=== PATIENT | female | born 1985 | race Two or more races ===

== ENCOUNTER → 2024-12-10 | Outpatient (CLI) | payer MEDICAID ==
[2024-12-10 10:34] LABS: Basophils # (auto) 0 10 ^3/uL (0-0.2); Basophils % (auto) 0.4 % (0.0-2.0); Eosinophils # (auto) 0.1 10 ^3/uL (0-0.8); Eosinophils % (auto) 1.8 % (0.0-7.0); Hematocrit 39.6 % (36.0-46.0); Hemoglobin 13.6 g/dL (12.2-16.2); Lymphocytes # (auto) 1.7 10 ^3/uL (0.4-5.4); Lymphocytes % (auto) 26.4 % (10.0-50.0); Mean Corpuscular Hemoglobin 31.1 pg (28.0-32.0); Mean Corpuscular Hgb Conc. 34.3 g/dL (32.0-36.0); Mean Corpuscular Volume 90.6 fL (80.0-100.0); Monocytes # (auto) 0.3 10 ^3/uL (0-1.3); Monocytes % (auto) 5.3 % (0.0-12.0); Neutrophils # (auto) 4.2 10 ^3/uL (1.6-8.6); Neutrophils % (auto) 66.1 % (37.0-80.0); Nucleated Red Blood Cells % 0.1 %; Platelet Count (auto) 261 10^3/uL (140-450); Red Blood Cells 4.37 10^6/uL (4.0-5.20); Red Cell Distribution Width 13.6 % (11.8-14.3); White Blood Cell 6.4 10^3/uL (4.4-10.8)
[2024-12-10 10:37] LABS: Amphetamine Screen, Urine Neg (NEGATIVE); Barbiturate Scree,Urine Neg (NEGATIVE); Benzodiazephine Screen, Urine Neg (NEGATIVE); Cocaine Screen, Urine Neg (NEGATIVE)
[2024-12-10 10:38] LABS: Cannabinoid Screen, Urine Neg (NEGATIVE); Opiate Scree,Urine Neg (NEGATIVE); Phencyclidine Screen, Urine Neg (NEGATIVE)
[2024-12-12 01:06] LABS: Chlamydia Trachomatis, NAA Negative (Negative); Neisseria gonorrhoeae, NAA Negative (Negative)
[2024-12-13 00:07] LABS: QuantiFERON-TB Gold Plus Negative (Negative)
== END | disposition home or self-care (01) ==
LOC: LAB 09:50
PROVIDERS: ATTEND Obstetrics & Gynecology
DX: Z34.80 Encounter for supervision of other normal pregnancy, unspecified trimester (principal); Z72.51 High risk heterosexual behavior; Z3A.00 Weeks of gestation of pregnancy not specified
CPT/HCPCS: 36415; 80307; 83036; 84144; 84702; 85025; 86703; 86762; 86780; 86850; 86900; 86901; 87086; 87340

== ENCOUNTER 2025-03-18 10:30 | Observation (INO) | payer MEDICAID ==
--- NOTE | 2025-03-18 11:45 | DVH ---
OB ULTRASOUND <14 WEEKS: HISTORY: Lost mucus plug TECHNIQUE: Multiple real-time grayscale sonographic images of the pelvis with duplex Doppler color f low, spectral and M-mode analysis. TRANSDUCERS: Transabdominal COMPARISON: None Findings/ IMPRESSION: Cephalic presentation. Anterior placenta without previa or abruption at this time. heart rate is 144 beats per minute ALEXX deepest pocket is 6.6 cm. Cervix is closed and measures 3.7 cm.
[2025-03-18] MEDS ORDERED: PREN-96 PO (12:12)
--- NOTE | 2025-03-18 16:10 | DVHDS2 ---
Physician Discharge Progress N Final Diagnosis: brown vaginal discharge Operations or Procedures: Operations or Procedures S: 39yo IUP@21wks came to OB triage with c/o brown vaginal discharge this morning. Had sex within the last [address] Olivarez uncomplicated, hx of previous C/S and PTD at 32.1wks. +FM, denies UCs/LOF. O: VSS +FHTs via doppler TOCO: no UCs OB sono done A: 39yo IUP@21wks brown vaginal discharge P: D/C home SAB precautions reviewed. f/u with Dr. Olivarez in office as scheduled tmrw 03/19/25 Dr. Olivarez consulted, agrees with POC. Other Interventions Other Interventions [place] [address] Ph: [phone] DIAGNOSTIC IMAGING Diagnostic Imaging Report : [id number] Signed PATIENT: MADIHA MALONEACCT: [id number] UNIT: [id number] : 1985 LOC: [facility] ROOM / BED: TRIAGE2 / A AGE / SEX: 39 / F ADM STATUS: ADM IN SERVICE 1034 ORDERING PHYSICIAN: JANIA MCCARTY CNM PROCEDURE(s): OBLTD - OBSTERICAL LIMITED REASON: Lost mucus plug ORDER NUMBER(s): [id number], ACCESSION NUMBER(s): [id number] OB ULTRASOUND <14 WEEKS: HISTORY: Lost mucus plug TECHNIQUE: Multiple real-time grayscale sonographic images of the pelvis with duplex Doppler color flow, spectral and M-mode analysis. TRANSDUCERS: Transabdominal COMPARISON: None Findings/ IMPRESSION: Cephalic presentation. Anterior placenta without previa or abruption at this time. heart rate is 144 beats per minute ALEXX deepest pocket is 6.6 cm. Cervix is closed and measures 3.7 cm. ATED BY: MARCK WHITE MD DICTATED DATE/TIME: 03/18/25 1143 SIGNED BY: MARCK WHITE MD SIGNED DATE/TIME: 03/18/25 1143 CC: Condition on Discharge: Stable Disposition: Home Discharge Instructions: Diet: Regular Activity: No Restrictions, As Tolerated Medications: see med list Follow Up Care: Specialist: f/u with Dr. Olivarez in office as scheduled tmrw 03/19/25 Discharge Statement: "Patient was advised to return to the ER or call 911 if any headaches, dizziness, shortness of breath, chest pain, abdominal pain, bleeding, fevers, or worsening of medical condition. Patient was counseled about treatment plan, medications, possible side effects, patientverbalized understanding. All questions were answered to the best of my ability. This discharge took greater then 30 minutes in planning, reviewing documentat ion, counseling the patient, and discussing with other team members." Visit Coding OBGYN Date of Service: Mar 18, 2025 Billing Provider: JANIA MCCARTY CNM SUPERVISOR MAJOR APPLIANCE ASSEMBLY Common Visit Codes: 76064-DDAYGSA OBS CARE (HIGH) SUPERVISOR MAJOR APPLIANCE ASSEMBLY Procedure Codes: 69602-35- NON-STRESS TEST JANIA MCCARTY CNM Mar 18, 2025 16:10
== END 2025-03-18 12:24 | disposition home or self-care (01) ==
LOC: UNDOADMOB 10:30 → LDRP 10:30 → UNDODISOB 12:24
PROVIDERS: ADMIT Obstetrics & Gynecology; ATTEND Obstetrics & Gynecology
DX: O34.62 Maternal care for abnormality of vagina, second trimester (principal); O09.522 Supervision of elderly multigravida, second trimester; N89.8 Other specified noninflammatory disorders of vagina; Z3A.21 21 weeks gestation of pregnancy; Z98.890 Other specified postprocedural states; Z79.899 Other long term (current) drug therapy
CPT/HCPCS: 76815; 81002; 94760; G0378

== ENCOUNTER 2025-06-24 11:16 | Outpatient (CLI) | payer MEDICAID ==
[~2025-06-24 11:16] MED LIST: PREN-96 PO
[2025-06-24 11:54] LABS: Hematocrit 33.6 % (36.0-46.0); Hemoglobin 11.4 g/dL (12.2-16.2); Mean Corpuscular Hemoglobin 31.6 pg (28.0-32.0); Mean Corpuscular Volume 93.5 fL (80.0-100.0); Nucleated Red Blood Cells % 0.1 %
[2025-06-26 04:06] LABS: Chlamydia Trachomatis, NAA Negative (Negative); Neisseria gonorrhoeae, NAA Negative (Negative)
== END 2025-06-24 17:00 | disposition home or self-care (01) ==
LOC: LAB 11:16
PROVIDERS: ATTEND Obstetrics & Gynecology
DX: Z34.80 Encounter for supervision of other normal pregnancy, unspecified trimester (principal); Z11.3 Encounter for screening for infections with a predominantly sexual mode of transmission; Z72.51 High risk heterosexual behavior; Z3A.00 Weeks of gestation of pregnancy not specified
CPT/HCPCS: 36415; 85025; 86780

== ENCOUNTER 2025-07-02 06:36 | Observation (INO) | payer MEDICAID ==
[~2025-07-02] VITALS: Ht 162.6 cm; Wt 66.2 kg
--- NOTE | 2025-07-02 09:48 | DVH ---
BIOPHYSICAL PROFILE HISTORY: Polyhydraminos TECHNIQUE: Multiple transabdominal real-time grayscale sonographic images through the gravid uterus of the fetus with duplex Doppler color flow and M-mode spectral analysis FINDINGS: BIOPHYSICAL PROFILE: breathing score: 2 movement score: 2 tone score: 2 Quantitative ALEXX score: 2 (ALEXX: 22.8 Cm.) Total score: 8 The cervix was not seen Single live fetus in cephalic presentation. heart rate 122 beats per minute. Grade II anterior placenta without previa or abruption IMPRESSION: Biophysical profile score: 8/8
--- NOTE | 2025-07-02 14:57 | DVHDS2 ---
Physician Discharge Progress N Final Diagnosis: ama,poly 36wks Operations or Procedures: Operations or Procedures nst reactive reviwed,sono Condition on Discharge: Good Disposition: Home Discharge Instructions: Diet: Regular Activity: No Restrictions, As Tolerated Medications: na Follow Up Care: Specialist: 3d Discharge Statement: "Patient was advised to return to the ER or call 911 if any headaches, dizziness, shortness of breath, chest pain, abdominal pain, bleeding, fevers, or worsening of medical condition. Patient was counseled about treatment plan, medications, possible side effects, patientverbalized understanding. All questions were answered to the best of my ability. This discharge took greater then 30 minutes in planning, reviewing docum entation, counseling the patient, and discussing with other team members." Visit Coding OBGYN Date of Service: Jul 02, 2025 Billing Provider: MAX MEREDITH DO SHIPPING POINT INSPECTOR Common Visit Codes: 05140-[id number] OBS CARE (HIGH) SHIPPING POINT INSPECTOR Procedure Codes: 34519-26- NON-STRESS TEST MAX MEREDITH DO Jul 02, 2025 14:57
== END 2025-07-02 09:53 | disposition home or self-care (01) ==
LOC: LDRP 08:05 → UNDOADMOB 08:05 → LDRP 08:11 → UNDODISOB 09:53
PROVIDERS: ADMIT Obstetrics & Gynecology; ATTEND Obstetrics & Gynecology
DX: O42.913 Preterm premature rupture of membranes, unspecified as to length of time between rupture and onset of labor, third trimester (principal); O09.523 Supervision of elderly multigravida, third trimester; Z3A.36 36 weeks gestation of pregnancy; Z98.890 Other specified postprocedural states
CPT/HCPCS: 59025; 76819; 81002; 94760; A4649; G0378

== ENCOUNTER 2025-07-04 06:01 | Observation (INO) | payer MEDICAID ==
--- NOTE | 2025-07-04 13:14 | DVH ---
CLINICAL HISTORY: Polyhydramnios. Advanced maternal age. COMPARISON: US BIOPHYSICAL PROFILE on DOS: 07/02/25, US OBSTERICAL LIMITED on DOS: 03/18/25 TECHNIQUE: biophysical profile was performed. Transabdominal sonographic images of the fetus were obtained. FINDINGS: The fetus is in cephalic position. heart rate measures 128 BPM. Amniotic fluid index measures 24.3 cm with MVP of 8.8 cm. The placenta is anterior in position without visualized evidence for previa or abruption. BPP profile is an overall score of 8/8, with 2/2 points for breathing, with at least one episode of breathing over a 30 second duration during a 30 minute observation, 2/2 points for movements, with 3 or more discrete body or limb movements, 2/2 points for tone, with one or more episodes of extremity extension with return to flexion, or opening and closing of hand, and 2/2 points for amniotic fluid, with at least 1 pocket of amniotic fluid that measures 2 cm in 2 perpendicular planes. IMPRESSION: 1. BPP score of 8/8. 2. ALEXX measures 24.3 cm
--- NOTE | 2025-07-04 17:57 | DVHDS2 ---
Physician Discharge Progress N Final Diagnosis: Polyhydramnios, AMA Secondary Diagnosis: Encounter for surveillance Operations or Procedures: Operations or Procedures NST/BPP/ALEXX reviewed NST reactive PATIENT: JHOAN MALONET: [id number] UNIT: [id number] : 1985 LOC: [facility] ROOM / BED: TRIAGE1 / A AGE / SEX: 39 / F ADM STATUS: ADM IN SERVICE 1216 ORDERING PHYSICIAN: ABIODUN GUTIERREZ DO PROCEDURE(s): BPP - BIOPHYSICAL PROFILE REASON: POLY AMA ORDER NUMBER(s): [id number], ACCESSION NUMBER(s): [id number] CLINICAL HISTORY: Polyhydramnios. Advanced maternal age. COMPARISON: US BIOPHYSICAL PROFILE on DOS: 07/02/25, US OBSTERICAL LIMITED on DOS: 03/18/25 TECHNIQUE: biophysical profile was performed. Transabdominal sonographic images of the fetus were obtained. FINDINGS: The fetus is in cephalic position. heart rate measures 128 BPM. Amniotic fluid index measures 24.3 cm with MVP of 8.8 cm. The placenta is anterior in position without visualized evidence for previa or abruption. BPP profile is an overall score of 8/8, with 2/2 points for breathing, with at least one episode of breathing over a 30 second duration during a 30 minute observation, 2/2 points for movements, with 3 or more discrete body or limb movements, 2/2 points for tone, with one or more episodes of extremity extension with return to flexion, or opening and closing of hand, and 2/2 points for amniotic fluid, with at least 1 pocket of amniotic fluid that measures 2 cm in 2 perpendicular planes. IMPRESSION: 1. BPP score of 8/8. 2. ALEXX measures 24.3 cm ATED BY: KINGSLEY CONTRERAS DO DICTATED DATE/TIME: 07/04/25 1311 Condition on Discharge: Stable Disposition: Home Discharge Instructions: Diet: Regular Activity: No Restrictions, As Tolerated Follow Up/Referral: as scheduled Medications: NA Follow Up Care: Discharge Statement: "Patient was advised to return to the ER or call 911 if any headaches, dizziness, shortness of breath, chest pain, abdominal pain, bleeding, fevers, or worsening of medical condition. Patient was counseled about treatment plan, medications, possible side effects, patientverbalized understanding. All questions were answered to the best of my ability. This discharge took greater then 30 minutes in planning, reviewing documentation, counseling the patient, and discussing with other team members." Visit Coding OBGYN Date of Service: Jul 04, 2025 Billing Provider: ABIODUN GUTIERREZ DO SOFTWARE TEST MANAGER Common Visit Codes: 18009-QTT/OBS SAME DATE (HIGH) SOFTWARE TEST MANAGER Procedure Codes: 78890-44- NON-STRESS TEST ABIODUN GUITERREZ DO Jul 04, 2025 17:57
== END 2025-07-04 13:56 | disposition home or self-care (01) ==
LOC: LDRP 12:07 → UNDOADMOB 12:07 → LDRP 12:18
PROVIDERS: ADMIT Obstetrics & Gynecology; ATTEND Obstetrics & Gynecology
DX: O40.3XX0 Polyhydramnios, third trimester, not applicable or unspecified (principal); O09.523 Supervision of elderly multigravida, third trimester; Z3A.36 36 weeks gestation of pregnancy; Z98.890 Other specified postprocedural states
CPT/HCPCS: 59025; 76819; 81002; 94760; A4649; G0378

== ENCOUNTER 2025-07-08 13:08 | Observation (INO) | payer MEDICAID ==
--- NOTE | 2025-07-08 14:22 | DVH ---
BIOPHYSICAL PROFILE HISTORY: Poly/AMA TECHNIQUE: Multiple transabdominal real-time grayscale sonographic images through the gravid uterus of the fetus with duplex Doppler color flow and M-mode spectral analysis FINDINGS: BIOPHYSICAL PROFILE: breathing score: 2 movement score: 2 tone score: 2 Quantitative ALEXX score: 2 (ALEXX: 25.79 Cm.) Total score: 8/8 The cervix not measured Single live fetus in cephalic presentation. heart rate 142 beats per minute. Anterior Grade 2 placenta without previa or abruption Single live fetus at 37 weeks 0 days Biophysical profile score 8/8 corresponding to an KEVEN of 07/29/2025 Estimated weight not calculated. No other measurements given IMPRESSION: 1. Biophysical profile score: 8/8. 2. ALEXX: 25.8 cm suggesting polyhydramnios. 3. heart rate 142 beats per minute.
--- NOTE | 2025-07-08 15:32 | DVHDS2 ---
Physician Discharge Progress N Final Diagnosis: testing for polyhydramnios/AMA Operations or Procedures: Operations or Procedures 39yo IUP@36.6wks VSS NST reactive per RN FKC/PTL/preE precautions reviewed Dr. Olivarez consulted, agrees with POC. Other Interventions Other Interventions [facility] [id number] [place] [address] Ph: [phone] DIAGNOSTIC IMAGING Diagnostic Imaging Report : [id number] Signed PATIENT: MADIHA MALONEACCT: [id number] UNIT: [id number] : 1985 LOC: [facility] ROOM / BED: TRIAGE2 / A AGE / SEX: 39 / F ADM STATUS: ADM IN SERVICE 131 ORDERING PHYSICIAN: JANIA MCCARTY CNM PROCEDURE(s): BPP - BIOPHYSICAL PROFILE REASON: Poly/AMA ORDER NUMBER(s): [id number], ACCESSION NUMBER(s): [id number] BIOPHYSICAL PROFILE HISTORY: Poly/AMA TECHNIQUE: Multiple transabdominal real-time grayscale sonographic images through the gravid uterus of the fetus with duplex Doppler color flow and M-mode spectral analysis FINDINGS: BIOPHYSICAL PROFILE: breathing score: 2 movement score: 2 tone score: 2 Quantitative ALEXX score: 2 (ALEXX: 25.79 Cm.) Total score: 8/8 The cervix not measured Single live fetus in cephalic presentation. heart rate 142 beats per minute. Anterior Grade 2 placenta without previa or abruption Single live fetus at 37 weeks 0 days Biophysical profile score 8/8 corresponding to an KEVEN of 07/29/2025 Estimated weight not calculated. No other measurements given IMPRESSION: 1. Biophysical profile score: 8/8. 2. ALEXX: 25.8 cm suggesting polyhydramnios. 3. heart rate 142 beats per minute. ATED BY: PIPPA RUTHERFORD Jr., DO DICTATED DATE/TIME: 07/08/251419 SIGNED BY: PIPPA RUTHERFORD Jr., SIGNED DATE/TIME: 07/08/251419 CC: Condition on Discharge: Stable Disposition: Home Discharge Instructions: Diet: Regular Activity: No Restrictions, As Tolerated Medications: see med list Follow Up Care: Specialist: f/u twice weekly Discharge Statement: "Patient was advised to return to the ER or call 911 if any headaches, dizziness, shortness of breath, chest pain, abdominal pain, bleeding, fevers, or worsening of medical condition. Patient was counseled about treatment plan, medications, possible side effects, patientverbalized understanding. All questions were answered to the best of my ability. This discharge took greater then 30 minutes in planning, reviewing documentation, counseling the patient, and discussing with other team members." Visit Coding OBGYN Date of Service: Jul 08, 2025 Billing Provider: JANIA MCCARTY CNM PUBLICATIONS WRITER Common Visit Codes: 10682-ETNHHRE OBS CARE (HIGH) PUBLICATIONS WRITER Procedure Codes: 12921-18- NON-STRESS TEST JANIA MCCARTY CNM Jul 08, 2025 15:32
== END 2025-07-08 14:39 | disposition home or self-care (01) ==
LOC: UNDOADMOB 13:08 → LDRP 13:08
PROVIDERS: ADMIT Obstetrics & Gynecology; ATTEND Obstetrics & Gynecology
DX: O40.3XX0 Polyhydramnios, third trimester, not applicable or unspecified (principal); O09.523 Supervision of elderly multigravida, third trimester; Z3A.36 36 weeks gestation of pregnancy; Z98.890 Other specified postprocedural states
CPT/HCPCS: 59025; 76819; 81002; 94760; A4649; G0378

== ENCOUNTER 2025-07-11 16:28 | Observation (INO) | payer MEDICAID ==
--- NOTE | 2025-07-11 17:37 | DVH ---
EXAM: US BIOPHYSICAL PROFILE HISTORY:: AMA, Poly COMPARISON: US BIOPHYSICAL PROFILE on DOS: 07/08/25 TECHNIQUE:: Transabdominal and endovaginal real time olivas scale, color, and doppler evaluation. Permanent images are maintained in the patient record. FINDINGS: Normal biophysical profile score 8/8. heart rate 138 beats per minute. Anterior placenta location. Cephalic presentation. Amniotic fluid index 22.3 cm. IMPRESSION: 1. Normal biophysical profile score.
--- NOTE | 2025-07-15 07:46 | DVHDS2 ---
Physician Discharge Progress N Final Diagnosis: poly 37wks Operations or Procedures: Operations or Procedures nst reactive reviwed,sono Condition on Discharge: Good Disposition: Home Discharge Instructions: Diet: Regular, Consistent carbohydrate Activity: Light activity Medications: na Follow Up Care: Specialist: 3d Discharge Statement: "Patient was advised to return to the ER or call 911 if any headaches, dizziness, shortness of breath, chest pain, abdominal pain, bleeding, fevers, or worsening of medical condition. Patient was counseled about treatment plan, medications, possible side effects, patientverbalized understanding. All questions were answered to the best of my ability. This discharge took greater then 30 minutes in planning, reviewing documentation, counseling the patient, and discussing with other team members." Visit Coding OBGYN Date of Service: Jul 11, 2025 Billing Provider: MAX MEREDTIH DO PERL DEVELOPER Common Visit Codes: [id number]-[id number] OBS CARE (HIGH) PERL DEVELOPER Procedure Codes: 47105-73- NON-STRESS TEST MAX MEREDITH DO Jul 15, 2025 07:46
== END 2025-07-11 17:52 | disposition home or self-care (01) ==
LOC: LDRP 16:28
PROVIDERS: ADMIT Obstetrics & Gynecology; ATTEND Obstetrics & Gynecology
DX: O40.3XX0 Polyhydramnios, third trimester, not applicable or unspecified (principal); O09.523 Supervision of elderly multigravida, third trimester; Z3A.37 37 weeks gestation of pregnancy; Z98.890 Other specified postprocedural states
CPT/HCPCS: 59025; 76819; 81002; 94760; A4649; G0378

== ENCOUNTER 2025-07-13 06:48 | Observation (INO) | payer MEDICAID ==
--- NOTE | 2025-07-13 11:00 | DVH ---
CLINICAL HISTORY: AMA/ polydramnios COMPARISON: US BIOPHYSICAL PROFILE on DOS: 07/11/25, US BIOPHYSICAL PROFILE on DOS: 07/08/25, US BIOPHYSICAL PROFILE on DOS: 07/04/25 TECHNIQUE: biophysical profile was performed. Transabdominal sonographic images of the fetus were obtained. FINDINGS: The fetus is in cephalic position. heart rate measures 132 BPM. Amniotic fluid index measures 23.5 cm. The placenta is anterior in position without evidence of previa or abruption seen. BPP profile is an overall score of 8/8, with 2/2 points for breathing, with at least one episode of breathing over a 30 second duration during a 30 minute observation, 2/2 points for movements, with 3 or more discrete body or limb movements, 2/2 points for tone, with one or more episodes of extremity extension with return to flexion, or opening and closing of hand, and 2/2 points for amniotic fluid, with at least 1 pocket of amniotic fluid that measures 2 cm in 2 perpendicular planes. IMPRESSION: 1. BPP score of 8/8. 2. ALEXX measures 23.5 cm.
--- NOTE | 2025-07-13 16:05 | DVHDS2 ---
Discharge Summary Date of Admission Jul 13, 2025 at 09:57 Date of Discharge: Jul 13, 2025 Admitting Diagnosis 37.7 weeks advanced maternal age history of polyhydramnios here for NST BPP which were performed Wounds: None Labs/Diagnostic Data: None Brief Hx & Hospital Course: Patient is here BPP NST performed both reassuring Consults/Reason for consult None Operations or Procedures BPP NST performed reassuring Condition at Discharge: Good Final Diagnosis/Problems List 37.567 weeks advanced maternal age polyhydramnios history reassuring Discharge Disposition: Home SNF Discharge Will this Physician continue t: No Discharge Instruct/Medications Diet: Regular Diet comment: Counts labor precautions Activity: Light activity Follow Up/Referral: As scheduled routine monitoring Scheduled Vit W/ Ferrous Fumara ( One Daily), 1 TAB PO DAILY, (Reported) Discharge Statement: "Patient was advised to return to the ER or call 911 if any headaches, dizziness, shortness of breath, chest pain, abdominal pain, bleeding, fevers, or worsening of medical condition. Patient was counseled about treatment plan, medications, possible side effects, patientverbalized understanding. All questions were answered to the best of my ability. This discharge took greater then 30 minutes in planning, reviewing documen tation, counseling the patient, and discussing with other team members." ASSESSMENT ASSESSMENT Assessment Visit Coding OBGYN Date of Service: Jul 13, 2025 Billing Provider: RONDA TURNER DO AVIATION SURVIVAL TECHNICIAN Common Visit Codes: 81016-[id number] INP/OBS CARE(HIGH), 15058-LRP/OBS SAME DATE (MOD) AVIATION SURVIVAL TECHNICIAN Procedure Codes: 83157-69- NON-STRESS TEST RONDA TURNER DO Jul 13, 2025 16:04
== END 2025-07-13 11:01 | disposition home or self-care (01) ==
LOC: LDRP 09:57
PROVIDERS: ADMIT Obstetrics & Gynecology; ATTEND Obstetrics & Gynecology
DX: O40.3XX0 Polyhydramnios, third trimester, not applicable or unspecified (principal); Z3A.37 37 weeks gestation of pregnancy; Z98.890 Other specified postprocedural states
CPT/HCPCS: 59025; 76819; 81002; 94760; A4649; G0378

== ENCOUNTER 2025-07-13 23:48 | Inpatient (IN) | payer MEDICAID ==
[~2025-07-13] VITALS: Ht 162.6 cm; Wt 67.1 kg
[2025-07-14] VITALS (26 sets, daily range): BP systolic 93–127; BP diastolic 59–83; PULSE 45–82; RESP 16–20; TEMP 97.7–98.5; O2SAT 92–99
[2025-07-14] MEDS: ceFAZolin 2 GM/D5W50ml 50 ML IV ONE (00:15)
[2025-07-14 00:48] LABS: Hematocrit 33.9 % (36.0-46.0); Hemoglobin 11.3 g/dL (12.2-16.2); Mean Corpuscular Hemoglobin 31.1 pg (28.0-32.0); Mean Corpuscular Volume 93.3 fL (80.0-100.0); Nucleated Red Blood Cells % 0.1 %
[2025-07-14] MEDS ORDERED: ONDANSETRON HCL 4 MG/2 ML VIAL ONE (00:52)
[2025-07-14] MEDS ORDERED: MORPHINE SULF PF 5 MG/10 ML VIAL ONE (00:52)
[2025-07-14] MEDS ORDERED: fentaNYL CITRATE 100 MCG/2 ML VL ONE (00:52)
[2025-07-14] MEDS ORDERED: KETOROLAC TROMETH 30 MG/ML 1ML VIAL ONE (00:52)
[2025-07-14] MEDS ORDERED: BUPIVACAINE/DEXTROSE MPF 0.75% 2 ML AMP IT ONE (00:53)
[2025-07-14] MEDS: LACTATED RINGER'S 1,000 ML IV ONE (00:54)
[2025-07-14] MEDS: LACTATED RINGER'S 1,000 ML IV SCH (00:54)
[2025-07-14 01:10] LABS: Albumin 3.4 g/dL (3.2-4.8); Anion Gap 8 (5-15); BUN/Creatinine Ratio 17.5 (10.0-20.0); Bilirubin, Total 0.8 mg/dL (0.2-1.0); Blood Urea Nitrogen 10 mg/dL (9-23); Carbon Dioxide 23 mmol/L (20-31); Chloride 107 mmol/L (98-107); Glucose 92 mg/dL (74-106); Potassium 3.8 mmol/L (3.5-5.1); Sodium 138 mmol/L (136-145)
[2025-07-14 01:11] LABS: INR 0.89 (0.9-1.15); Partial Thromboplastin Time 30.7 SEC (24.5-34.5); Prothrombin Time 9.5 sec (9.3-11.8)
--- NOTE | 2025-07-14 01:22 | DVHOP2 ---
Operative Report - 2 Report Details Date: 07/14/25 Preop Diagnosis: 37 6/7 weeks intrauterine SROM gross meconium. Previous -section Postop Diagnosis: Same Surgeon: Arabella Turner Aircraft Accessories Mechanic: [place] OR staff Anesthesiologist: RUSTY Shahid Anesthesia: Regional Drains: Campos catheter Implant: None Consent: The patient was informed of the risks and benefits of the procedure. These include but are not limited to complications of anesthesia, postoperative infection, incomplete relief of symptoms, recurrence of symptoms, damage to blood vessels, nerves and tendons, deep venous thrombosis, pulmonary embolism and possible need for repeat surgery in the future. Complications: None Estimated Blood Loss: 650 cc Fluids: See anesthesia log Findings: Infant vigorous cry and tone gross meconium normal anatomy Indications for Surgery: Previous -section spontaneous rupture membranes gross meconium Name of Procedure Performed Repeat low transverse section Procedure Details Procedure Details: Patient taken the operating placed supine position after sitting in spinal placed placed left lateral tilt prepped draped sterile fashion after obtaining adequate analgesia. Patient skin was cut through old scar with scalpel down to the rectus fascia nicked in midline carried laterally rectus muscle midline peritoneum identified and entered with sharp dissection vesicouterine peritoneum was taken off the lower uterine segment and the low Pfannenstiel incision made lower uterine transverse incision was made down to the current membranes hourglassing which ruptured with hemostat if found to be JUAN PABLO vertex position 1 hand placed lower uterine segment in giving gentle fundal pressure and the head essentially delivered spontaneously nose and mouth DeLee suctioned shoulders and torso delivered without difficulty. At this point cord was immediately cut and handed off to awaiting respiratory blood sample taken and cord gas sent. Placenta removed cleared of all clots debris copiously irrigated and closed with double layer of 0 Vicryl having completed complete hemostasis and incorporating the bladder flap and the last incision we serially observed the incision as well as the cul-de-sac and gutters abdominal gutters for all clots and debris which were cleared. We placed uterus back into the abdomen we reinspected incision with good hemostasis instrument sponge count correct x1 peritoneum closed running continuous 2-0 Vicryl rectus fascia closed with 0 PDS continue running continuous Camper's Annette's fascia undermined and closed with a approximated with 2-0 chromic and skin was closed with a subcu ticular 3-0 Prolene was benzoin Steri-Strips ABD pad placed as well as a 6 in pressure dressing with abdominal binder. Specimen: Placenta umbilical blood cord sample and blood gas cord sample Condition Good Disposition PACU Visit Coding OBGYN Date of Service: Jul 14, 2025 Billing Provider: RONDA TURNER DO MANAGER REGISTRATION Common Visit Codes: 53673-[id number] INP/OBS CARE(HIGH), 98535-PPS/OBS SAME DATE (LOW), 23970-CDU/OBS SAME DATE (MOD) MANAGER REGISTRATION Procedure Codes: 95198-INEOY OB CARE, DEL RONDA TURNER DO Jul 14, 2025 01:22
[2025-07-14] MEDS ORDERED: HYDROmorphone HCL 2 MG/ML VL/or syr IV PRN ×2 (01:30→02:45)
[2025-07-14] MEDS ORDERED: KETOROLAC TROMETH 30 MG/ML 1ML VIAL IV PRN (01:30)
[2025-07-14] MEDS ORDERED: D5W/LACTATED RINGERS 1,000 ML IV SCH (01:30)
--- NOTE | 2025-07-14 01:35 | DVHHP2 ---
OB CC & HPI Date Date of Admission: Jul 14, 2025 Patient Identification: : 3 Para: 2 EDC: Jul 31, 2025 EGA: 37 and 6 7 weeks Chief Complaints: Reason for admission: section Indication for : desires repeat (From this evening gross meconium) Admission Nurse Assessment Rev: Yes History of Present Complaints Consent: We discussed the risks, benefits complications alternatives not limited to this general risks of -section not limited limited to infection bleeding anesthesia acute chronic pain damage to adjacent organs bowel bladder ureters muscles nerves blood vessels. She understands the risks of anesthesia limited to paralysis in her options. She understands the risks of transfusion hep B HIV transfusion reaction. All questions answered and encouraged patient and babies father adamantly wants to proceed. Past Medical History Cardiac: No pertinent Hx Pulmonary: No pertinent Hx Central Nervous System: No pertinent Hx GI: No pertinent Hx Hemotology/Oncology: No pertinent Hx Hepatobiliary: No pertinent Hx Psychiatric: No pertinent Hx Musculoskeletal: No pertinent Hx Rheumotologic: No pertinent Hx Infectious Disease: No peritnent Hx ENT: No pertinent Hx Renal/: No pertinent Hx Endocrine: No pertinent Hx Dermatology: No pertinent Hx Past Surgical History: OB History OB History Care: Good Care Ultrasounds: Normal mid trimester US Other Concerns: Patient previous was see if see cardiac anomaly genetic. She also has history of Down's in the family. Allergies: Coded Allergies: NO KNOWN ALLERGIES (Unverified , 07/14/25) Home Meds Reported Medications Vit W/ Ferrous Fumara ( One Daily) Daily Tab, 1 TAB PO DAILY, #90 TAB 3 Refills 03/18/25 Current Medications Current Medications Medications (Trade) Dose Ordered Sig/Alejandra Route PRN Reason Start Time Stop Time Status Last Admin Lactated Ringer's 1,000 ml @ 125 mls/hr Q8H IV 07/14/25 00:15 07/14/25 00:54 Dextrose/Lactated Ringer's 1,000 ml @ 125 mls/hr Q8H IV 07/14/25 01:30 Hydromorphone HCl (Dilaudid Injection) 0.5 mg Q1HP PRN IV SEVERE PAIN (7-10 PAIN SCALE) 07/14/25 01:30 Cefazolin Sodium 50 ml @ 100 mls/hr Q8H IV 07/14/25 01:30 07/14/25 17:59 UNV Ketorolac Tromethamine (Toradol Injection) 15 mg Q8HPRN PRN IV MODERATE PAIN (4-6 PAIN SCALE) 07/14/25 01:30 07/19/25 01:29 Family & Social History Family/Social History Blood Type: Unknown Rubella: unknown RPR/VDRL: Unknown GBS Status: Unknown HBsAG: Unknown Review of Systems Constitutional: No symptom reported Ears, Nose, & Throat: No symptom reported Eyes: No symptom reported Pulmonary/Respiratory: No symptom reported Cardiovascular: No symptom reported Gastrointestinal: No symptom reported Genitourinary: No symptom reported Musculoskeletal: No symptom reported Skin: No symptom reported Psychiatric: No symptom reported Endocrine: No symptom reported Hemotologic/Lymphatic: No symptom reported OB Admission Exam Physical Exam HEENT: TMs Normal, Fontanelles Normal, Nasal Mucosa Normal, Eyes non-injected, Oropharynx Normal, PERRLA, Moist Membranes, EOMI Heart: Rhythm Normal Lungs: Clear Abdomen: Non tender Extremities: Normal Reflexes: Normal Pelvic Exam: Grossly ruptured deferred meconium Cervical Dilatation: 1cm Effacement: 50% Station: -3 Membranes: Ruptured Amniotic Fluid: Thin Meconium Heart Rate: 130's Accelerations: Accelerations Present Short Term Variability: Present Cap Cutter Variability: Average (6-25) Contractions on Admission: < 5 Minutes Apart Intensity: Mild OB Plan Plan Admitting Diagnosis: Repeat Section, spontaneous from reassuring membranes and meconium-stained, history of see if see genetic cardiac defect in her previous . History familial down syndrome Visit Coding OBGYN Date of Service: Jul 14, 2025 Billing Provider: RONDA TURNER DO REIMBURSEMENT ANALYST Common Visit Codes: 87798-[id number] INP/OBS CARE(HIGH), 40891-PBV/OBS SAME DATE (LOW) REIMBURSEMENT ANALYST Procedure Codes: 71842-SGQAS OB CARE, DEL RONDA TURNER DO Jul 14, 2025 01:35
[2025-07-14 01:36] LABS: Alanine Aminotransferase 9 U/L (7-40); Alkaline Phosphatase 164 U/L (46-116); Calcium 8.6 mg/dL (8.7-10.4); Total Protein 6.0 g/dL (5.7-8.2)
[2025-07-14] MEDS ORDERED: PHENYLEPHRINE HCL 10 MG/ML VL ONE (01:50)
[2025-07-14] MEDS ORDERED: SODIUM CHLORIDE LOCK 10 ML ONE (01:50)
[2025-07-14 02:14] LABS: Urine Protein, UAD TRACE (Negative)
[2025-07-14 02:18] LABS: Amphetamine Screen, Urine Neg (NEGATIVE); Barbiturate Scree,Urine Neg (NEGATIVE); Benzodiazephine Screen, Urine Neg (NEGATIVE); Cannabinoid Screen, Urine Neg (NEGATIVE); Cocaine Screen, Urine Neg (NEGATIVE); Opiate Scree,Urine Neg (NEGATIVE); Phencyclidine Screen, Urine Neg (NEGATIVE)
[2025-07-14] MEDS ORDERED: diphenhydrAMINE HCL 50 MG/1 ML VL IV PRN (02:45)
[2025-07-14] MEDS: NALBUPHINE HCL 10 MG/1ml INJECTION IV ONE (02:45)
[2025-07-14] MEDS ORDERED: NALOXONE HCL 0.4 MG/ML VIAL IV PRN (02:45)
[2025-07-14] MEDS: ONDANSETRON HCL 4 MG/2 ML VIAL IV PRN (07:17)
[2025-07-14] MEDS ORDERED: ceFAZolin 1GM/50ML 50 ML IV SCH (08:00)
[2025-07-14] MEDS: ACETAMINOPHEN IV 1000 MG/100ML (10MG/ML) IV PRN (09:41)
[2025-07-14] MEDS: ceFAZolin 1GM/50ML 50 ML IV SCH (10:17)
[2025-07-15] VITALS (13 sets, daily range): BP systolic 90–122; BP diastolic 55–84; PULSE 47–74; RESP 16–18; TEMP 97.6–98.7; O2SAT 95–100
[2025-07-15] MEDS ORDERED: HYDROcodone-ACET 5/325MG TAB PO PRN (03:30)
[2025-07-15] MEDS: IBUPROFEN 800 MG TAB PO PRN (03:31)
--- NOTE | 2025-07-15 06:05 | DVHPN2 ---
Chief Complaints Patient reports: No new complaints, Feels better Nursing reports: No new complaints, No chest pain, No dizziness, No cough Objective Vitals Vital Signs Date Time Temp Pulse Resp B/P (MAP) Pulse Ox O2 Delivery O2 Flow Rate FiO2 07/15/25 03:30 98.5 16 98/61 (73) 98 98.5 07/15/25 03:30 47 07/14/25 19:30 Room Air Medications Current Medications Medications (Trade) Dose Ordered Sig/Alejandra Route PRN Reason Start Time Stop Time Status Last Admin Acetaminophen/ Hydrocodone Bitart ([place] 5/325MG Tab) 1 tab Q4HPRN PRN PO FOR PAIN 1-6 07/15/25 03:30 Acetaminophen/ Hydrocodone Bitart ([place] 5/325MG Tab) 2 tab Q4HPRN PRN PO FOR PAIN 7-10 07/15/25 03:30 Dimethicone (Mylicon Tab) 80 mg QID PO 07/15/25 07:00 Ibuprofen (Motrin Tablet) 800 mg Q8HP PRN PO BREAKTHROUGH PAIN 07/15/25 03:30 07/15/25 03:31 General: Normal ENT: Normal Neck: Normal Lungs: Normal Cardiovascular: Normal Abdominal: Normal (Clean dry) Musculoskeletal: Normal Extremities: Normal Skin: Normal Neurological: Normal Studies Laboratory Tests 07/14/25 00:33 Test 07/14/25 00:33 Range/Units Serum Glucose 92 74-106 mg/dL Ass/Plan Assessment Postop day 1 stable improved Plan Advanced care RONDA TURNER DO Jul 15, 2025 06:05
[2025-07-15] MEDS: SIMETHICONE 80 MG CHEWABLE TABLET PO SCH (06:46)
[2025-07-15 07:50] LABS: Hematocrit 32.5 % (36.0-46.0); Hemoglobin 11.1 g/dL (12.2-16.2); Mean Corpuscular Hemoglobin 31.7 pg (28.0-32.0); Mean Corpuscular Volume 93.1 fL (80.0-100.0); Nucleated Red Blood Cells % 0.1 %
[2025-07-15] MEDS ORDERED: DOCU-94 PO (10:27)
[2025-07-15] MEDS ORDERED: PREN-96 PO (10:27)
[2025-07-15] MEDS ORDERED: HYDR-4902 PO (10:27)
[2025-07-15] MEDS ORDERED: IBUP-1455 PO (10:27)
[2025-07-15] MEDS: DOCUSATE SOD 100 MG CAP PO SCH (10:57)
[2025-07-15] MEDS: HYDROcodone-ACET 5/325MG TAB PO PRN (13:51)
[2025-07-15] MEDS ORDERED: LIDOCAINE 1% INJ PF 5ML AMP IJ ONE (19:00)
--- NOTE | 2025-07-16 00:33 | DVHPN2 ---
Progress Note Date Seen: Jul 16, 2025 Subjective S: bleeding is less, eating food without issues, denies lightheaded/dizziness, pain well controlled with oral medications, no concerns with urinating, passing flatus, no BM yet, ambulating well, well vital signs VSS see cpn Vital Sign Date Time Temp Pulse Resp B/P (MAP) Pulse Ox O2 Delivery O2 Flow Rate FiO2 07/15/25 23:00 98.1 60 17 108/84 (92) 96 98.1 07/15/25 19:00 Room Air Total Intake and Output 07/15/25 07/15/25 07/16/25 15:00 23:00 07:00 Output Total 400 ml Balance -400 ml medications Current Medications Medications Dose Ordered Sig/Alejandra Route Start Time Stop Time Status Last Admin Dose Admin Lactated Ringer's 1,000 ml @ 125 mls/hr Q8H IV 07/14/25 00:15 07/14/25 09:22 125 MLS/HR Diphenhydramine HCl 25 mg Q4HP PRN IV 07/14/25 02:45 Ondansetron HCl 4 mg Q4HP PRN IV 07/14/25 02:45 07/14/25 07:17 4 MG Dimethicone 80 mg QID PO 07/15/25 07:00 07/15/25 21:37 80 MG Ibuprofen 800 mg Q8HP PRN PO 07/15/25 03:30 07/15/25 21:37 800 MG Acetaminophen/ Hydrocodone Bitart 1 tab Q4HPRN PRN PO 07/15/25 03:30 07/15/25 20:34 1 TAB Acetaminophen/ Hydrocodone Bitart 2 tab Q4HPRN PRN PO 07/15/25 03:30 Docusate Sodium 100 mg BID PO 07/15/25 10:30 07/15/25 21:37 100 MG laboratory and microbiology Laboratory Tests 07/15/25 07:14 07/14/25 00:33 Test 07/14/25 00:33 Range/Units Serum Glucose 92 74-106 mg/dL Objective O: VSS Chest: heart and lung sounds normal Abd: soft, non-tender, fundus firm at U, active bowel sounds, no rebound or guarding Incision: sylke Dressing C/D/I Ext: Non-tender, No edema Lochia: minimal See lab results Problems(with codes): (1) S/P repeat low transverse Assessment/Plan A: 39 yo now s/p POD#2 repeat C/S Breast feeding exclusively P: D/C home today Rx sent to pharmacy precautions and preeclampsia warning signs reviewed F/U with [facility] office in 1 week Plan discussed with: Patient Fluid Accumulation (N/A): N/A Reduced Manager Chinese Strength (Non-Sev: N/A MAY WATKINS STUDENTMDW Jul 16, 2025 00:33
--- NOTE | 2025-07-16 00:36 | DVHDS2 ---
Obstetrics Discharge Summary Obstetrics Discharge Summary Date of Admission: Jul 13, 2025 Date of Discharge: Jul 16, 2025 Reason For Admission: Section (Repeat) Procedures: NST Intrapartum Procedures: (LTCS) Procedures: Antibiotics, Hct/date: (07/15/25), Hgb/date: (07/15/25) Operative Complicat: None Discharge Diagnosis: Term -Delivered Discharge Information: Activity (as tolerated, no heavy lifting and nothing in the vagina for 6 weeks), Diet (Routine), Medications (rx sent), Instructions (Routine), Discharge to (Home), Accompanied by (Spouse), Discarge date (07/16/25) Visit Coding OBGYN Date of Service: Jul 16, 2025 Billing Provider: JANIA MCCARTY CNM FOLDER MACHINE ADJUSTER Common Visit Codes: 48858-JTB/[id number] DISCH DAY <30MIN MAY WATKINS STUDENTMDW Jul 16, 2025 00:36
[2025-07-16 03:00] VITALS: BP 109/74; PULSE 55; RESP 17; TEMP 97.8; O2SAT 97
[2025-07-16 07:00] VITALS: BP 129/83; PULSE 63; RESP 16; TEMP 97.6; O2SAT 97
== END 2025-07-16 10:42 | disposition home or self-care (01) | DRG 540 ==
LOC: LDRP 23:48 → OBSVTOIN 07-14 00:02 → LDRP 07-14 03:17
PROVIDERS: ADMIT Obstetrics & Gynecology; ATTEND Obstetrics & Gynecology
PROC: 10D00Z1 Extraction of Products of Conception, Low, Open Approach (ICD-10-PCS; principal; 2025-07-14 01:38)
DX: O34.211 Maternal care for low transverse scar from previous cesarean delivery (principal); O77.0 Labor and delivery complicated by meconium in amniotic fluid; Z37.0 Single live birth; Z3A.37 37 weeks gestation of pregnancy
CPT/HCPCS: 36415; 59025; 80053; 80307; 81001; 81002; 85025; 85610; 85730; 86780; 86850; 86900; 86901; 94760; 94762; 96360; 96361; 96365; 96366; G0378; J0131; J1100; J1885; J2405; J2590